=== PATIENT | male | born 2000 | race African-American/Black ===

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

== ENCOUNTER 2021-07-14 09:08 | Outpatient (CLI) | payer OTHER ==
[2021-07-14 10:30] LABS: #Basophils 0.1 10x3/uL (0.0-0.2); #Eosinphils 0.3 10x3/uL (0.0-0.5); #Monocytes 0.9 10x3/uL (0.0-1.1); #Neutrophils 3.6 10x3/uL (1.5-8.4); %Basophils 0.8 % (0.0-2.0); %Eosinophils 2.7 % (0.0-6.0); %Lymphocytes 48.7 % (18.0-47.0); %Monocytes 9.4 % (0.0-10.0); %Neutrophils 37.7 % (40.0-75.0); Hemoglobin 14.8 g/dL (13.5-17.5); Mean Corpuscular Hemoglobin 28.7 pg (27.0-33.0); Mean Platelet Volume 9.8 fl (7.4-10.4); Platelet Count 327 10x3/uL (150-450); RBC Distribution Width 13.2 % (11.5-14.5); Red Blood Cell (RBC) Count 5.15 10x6/uL (4.32-5.72); White Blood Cell (WBC) Count 9.5 10x3/uL (3.5-10.5)
[2021-07-14 21:28] LABS: SARS-CoV-2 PCR by NAA Not Detected (NotDetected)
== END 2021-07-14 09:09 | disposition home or self-care (01) ==
LOC: LABBT 09:08
PROVIDERS: ATTEND Orthopaedic Surgery Hand Surgery
DX: Z01.812 Encounter for preprocedural laboratory examination (principal); M20.022 Boutonniere deformity of left finger(s); Z20.822 Contact with and (suspected) exposure to COVID-19
CPT/HCPCS: 85025; U0003; U0005

== ENCOUNTER 2021-07-18 07:33 | Day surgery (SDC) | payer OTHER ==
[2021-07-13 15:14] VITALS: BMI 22.3
[2021-07-18] MEDS ORDERED: fentaNYL Citrate/PF 100 MCG/2 ML SYRINGE ONE (09:33)
[2021-07-18] MEDS ORDERED: Sodium Chloride 0.9% 100 ML ONE (10:46)
[2021-07-18] MEDS ORDERED: CEFAZOLIN 2 GM VIAL ONE (10:46)
[2021-07-18] MEDS ORDERED: Neomycin-Polymyxin 1 ML AMP ONE (11:02)
[2021-07-18] MEDS ORDERED: Bacitracin Zinc Ointment 30 gm TUBE ONE (11:02)
[2021-07-18] MEDS ORDERED: Bupivacaine PF 0.5% 30 ML VIAL ONE (11:02)
[2021-07-18] MEDS ORDERED: Dexamethasone 20 MG/5 ML VIAL ONE (11:05)
[2021-07-18] MEDS ORDERED: PROPOFOL 200 MG/20 ML VIAL ONE (11:05)
[2021-07-18] MEDS ORDERED: Lidocaine 1% PF 5 ML VIAL ONE (11:05)
[2021-07-18] MEDS ORDERED: Ketorolac Tromethamine 30 MG/ML VIAL ONE ×2 (11:05→13:12)
[2021-07-18] MEDS ORDERED: Ondansetron PF 4 MG/2 ML Vial ONE (11:05)
[2021-07-18] MEDS ORDERED: ePHEDrine 50 MG/ML VIAL ONE (11:05)
== END 2021-07-18 14:13 | disposition home or self-care (01) ==
LOC: SDC 07:33
PROVIDERS: ATTEND Orthopaedic Surgery Hand Surgery
PROC: 0LU807Z Supplement Left Hand Tendon with Autologous Tissue Substitute, Open Approach (ICD-10-PCS; principal; 2021-07-18)
PROC: 0RBX0ZZ Excision of Left Finger Phalangeal Joint, Open Approach (ICD-10-PCS; principal; 2021-07-18)
DX: Q68.1 Congenital deformity of finger(s) and hand (principal); M24.532 Contracture, left wrist; J45.909 Unspecified asthma, uncomplicated
CPT/HCPCS: 76000; C1713; J1100; J1885; J2405; J2704; J3490; S0020